=== PATIENT | male | born 1960 | race Caucasian/White ===

== ENCOUNTER 2024-03-03 10:40 | Emergency (ER) | payer MEDICAID, OTHER ==
[~2024-03-03] VITALS: Ht 172.7 cm; Wt 60.0 kg
[2024-03-03 11:56] VITALS: BP 111/68; TEMP 98.8
[2024-03-03] MEDS ORDERED: IPRATROPIUM/ALBUTEROL 0.5-3(2.5)MG/3ML NEB HHN ONE ×2 (13:15)
[2024-03-03 13:30] VITALS: PULSE 80; RESP 18; O2SAT 94
[2024-03-03] MEDS: ALBUTEROL (0.083%) 2.5MG/3ML NEB HHN STA (13:30)
[2024-03-03] MEDS: IPRATROPIUM BROMIDE (0.02%) 0.5MG/2.5ML NEB HHN STA (13:30)
[2024-03-03] MEDS: PREDNISONE 20MG TABLET PO STA (13:33)
[2024-03-03 13:50] LABS: BASOPHILS % 0.5 % (0.0-2.0); EOSINOPHILS % 0.2 % (0.0-5.0); HEMATOCRIT. 42.3 % (42.0-52.0); HEMOGLOBIN. 14.2 g/dL (14.0-18.0); LYMPHOCYTES % 10.5 % (20.0-50.0); MEAN CORPUSCULAR HEMOGLOBIN 28.9 pg (28.0-32.0); MEAN CORPUSCULAR HGB CONC 33.7 g/dL (31.0-37.0); MEAN CORPUSCULAR VOLUME 85.9 fL (80.0-94.0); MEAN PLATELET VOLUME 7.6 fl (7.4-10.4); MONOCYTES % 8.1 % (2.0-8.0); NEUTROPHILS % 80.7 % (40.0-76.0); PLATELET 278 x1000/uL (130-400); RED BLOOD CELL COUNT 4.92 mill/uL (4.7-6.1); RED CELL DISTRIBUTION WIDTH 13.4 % (11.6-14.6); WHITE BLOOD COUNT 13.4 x1000/uL (4.5-11.0)
[2024-03-03 13:57] LABS: CHLORIDE 93 mEq/L (98-107); SODIUM 129 mEq/L (136-145)
[2024-03-03 13:58] LABS: CALCIUM 9.3 mg/dL (8.7-10.4); CARBON DIOXIDE 29 mEq/L (21-32)
[2024-03-03 14:03] LABS: CREATININE 0.9 mg/dL (0.6-1.3); TROPONIN I HIGH SENSITIVITY 4 ng/L (3.0-53)
[2024-03-03 14:04] LABS: ALANINE AMINOTRANSFERASE 14 IU/L (10-49); UREA NITROGEN BLOOD 8 mg/dL (9-23)
[2024-03-03 14:05] LABS: ASPARTATE AMINOTRANSFERASE 18 IU/L (<34); BILIRUBIN DIRECT 0.2 mg/dL (<=3.0)
[2024-03-03 14:06] LABS: BILIRUBIN TOTAL 0.5 mg/dL (0.1-1.0)
[2024-03-03 14:20] LABS: GLUCOSE 412 mg/dL (70-105)
[2024-03-03] MEDS ORDERED: AZITHROMYCIN 500 MG TABLET PO ONE (15:30)
[2024-03-03] MEDS ORDERED: AMOXICILLIN/POTASSIUM CLAVULANATE 875/125MG TAB PO ONE (15:30)
[2024-03-03 16:21] LABS: TROPONIN I HIGH SENSITIVITY 4 ng/L (3.0-53)
[2024-03-03 16:26] LABS: INR 1.1; PROTHROMBIN TIME 11.7 sec (9.6-11.0)
[2024-03-03] MEDS ORDERED: BUDE6HFA INH (17:53)
[2024-03-03] MEDS ORDERED: P20 MT (17:54)
== END 2024-03-03 18:48 | disposition home or self-care (01) ==
LOC: ER 10:40
DX: J45.901 Unspecified asthma with (acute) exacerbation (principal); E11.9 Type 2 diabetes mellitus without complications; Z98.890 Other specified postprocedural states
CPT/HCPCS: 80076; 80048; 83690; 85025; 85610; 84484; 36415; 71045; 94640; 93005; 99291; J7512; Z7610 ×3